=== PATIENT | female | born 1955 | race Caucasian/White ===

== ENCOUNTER 2021-07-04 10:01 | Emergency (ER) | payer BC ==
--- NOTE | 2021-07-04 10:13 | ERPHSYRPT ---
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 As quickly and suddenly as its onset, the symptoms relieved completely. Patient had no other complaints or issues. She denies headache, she denies chest pain. She denies abdominal pain she has no shortness of breath. She has not had a fever. Patient states there are no new medications. Her EKG on arrival shows a rate controlled atrial fibrillation and this is new to her. Patient has a history of peripheral neuropathy, elevate d cholesterol and sleep apnea. She has not seen a weasand trimmer. Timing/Duration: today Severity: mild Character of Deficits: new weakness, altered sensation, LUE Deficits: no difficulties Baseline/Normal Cognition: alert oriented x 3 Current Cognition: alert oriented x 3 Baseline Gait: walks w/o assistance Associated Symptoms: weakness (Upper extremityresolved), other Allergies/Adverse Reactions: codeine Adverse Reaction (Verified 07/04/21 10:13) Nausea and Vomiting morphine Adverse Reaction (Verified 07/04/21 10:13) Nausea and Vomiting Home Medications: Simvastatin [Zocor] 10 mg PO DAILY 11/03/15 [History] Ropinirole HCl 1 mg PO TID 11/08/15 [History] Travel Risk - International Travel Have you traveled outside of the country in past 3 weeks: No - Coronavirus Screening Are you exhibiting any of the following symptoms?: No Close contact with a COVID-19 positive Pt in past 14-21 Days: No - Review of Systems Constitutional: No Symptoms Eyes: No Symptoms Ears, Nose, & Throat: No Symptoms Respiratory: No Symptoms Cardiac: No Symptoms Abdominal/Gastrointestinal: No Symptoms Genitourinary Symptoms: No Symptoms Musculoskeletal: No Symptoms Skin: No Symptoms Neurological: Focal Weakness (Left upper extremitynow resolved), Parasthesia (Left upper extremitynow resolved) Psychological: No Symptoms Endocrine: No Symptoms Hematologic/Lymphatic: No Symptoms Immunological/Allergic: No Symptoms All Other Systems: Reviewed and Negative - Past Medical History Pertinent Past Medical History: Yes Neurological History: Peripheral Neuropathy, Other ENT History: No Pertinent History Cardiac History: High Cholesterol Respiratory History: Sleep Apnea Endocrine Medical History: No Pertinent History Musculoskeletal History: No Pertinent History GI Medical History: No Pertinent History History: No Pertinent History Psycho-Social History: No Pertinent History Female Reproductive Disorders: No Pertinent History Other Medical History: restless leg syndrome - Past Surgical History Past Surgical History: Yes Neuro Surgical History: No Pertinent History Cardiac: No Pertinent History Respiratory: No Pertinent History Gastrointestinal: No Pertinent History Genitourinary: No Pertinent History Musculoskeletal: Orthopedic Surgery Female Surgical History: Other Other Surgical History: D&C, right carpal tunnel release,colonoscopy with polypectomy april 2009 - Social History Smoking Status: Never smoker Exposure to second hand smoke: No Drug Use: none - Nursing Vital Signs Nursing Vital Signs: Initial Vital Signs Temperature 98.4 F 07/04/21 10:13 Pulse Rate 98 H 07/04/21 10:13 Respiratory Rate 20 07/04/21 10:13 Blood Pressure 146/89 07/04/21 10:13 O2 Sat by Pulse Oximetry 96 07/04/21 10:13 Pain Scale Pain Intensity 0 - [place] Coma Scale Best Eye Response (Kathy): (4) open spontaneously Best Verbal Response ([place]): (5) oriented Best Motor Response (Kathy): (6) obeys commands Kathy Total: 15 - Physical Exam General Appearance: no apparent distress, alert, anxiety, obese Eye Exam: bilateral eye: normal inspection, PERRL, EOMI Ears, Nose, Throat Exam: normal ENT inspection, moist mucous membranes Neck Exam: normal inspection, non-tender, supple, full range of motion Respiratory: normal breath sounds, lungs clear, airway intact, No chest tenderness, No respiratory distress Cardiovascular: irregular Gastrointestinal: soft, normal bowel sounds, No tenderness Pelvic Exam: not done Rectal Exam: not done Extremity Exam: normal inspection, normal range of motion, pelvis stable Mental Status: alert, oriented x 3, 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 When compared to EKG dated 02/14/2017, there is new onset of rate controlled atrial fibrillation today.) Ordered Tests: Active Orders 24 hr Category Date Time Status EKG-ER Only STAT Care 07/04/21 10:34 Active IV Insertion STAT Care 07/04/21 10:34 Active NPO (ED) STAT Care 07/04/21 10:35 Active HEAD WITHOUT CONTRAST [CT] Stat Exams 07/04/21 10:46 Completed CBC W DIFF Stat Lab 07/04/21 10:42 Completed CMP Stat Lab 07/04/21 09:05 Completed PROTIME WITH INR Stat Lab 07/04/21 10:42 Completed T4 (Thyroxine) Stat Lab 07/04/21 09:05 Completed TROPONIN Q3H Lab 07/04/21 10:42 Completed TROPONIN Q3H Lab 07/04/21 13:45 Ordered TROPONIN Q3H Lab 07/04/21 16:45 Ordered TROPONIN Q3H Lab 07/04/21 19:45 Ordered TROPONIN Q3H Lab 07/04/21 22:45 Ordered TSH [TSH, 3RD Generation] Stat Lab 07/04/21 09:05 Received Lab/Rad Data: Laboratory Result Diagrams 07/04/21 10:42 07/04/21 09:05 Laboratory Results 07/04/21 07/04/21 07/04/21 Range/Units 10:42 10:42 10:42 WBC 7.1 (4.0-10.5) x10^3/uL RBC 4.80 (4.1-5.4) x10^6/uL Hgb 14.0 (12.0-16.0) g/dL Hct 42.8 (35-47) % MCV 89.2 (78-100) fL MCH 29.2 (26-32) pg MCHC 32.7 (32-36) g/dL RDW 13.4 (11.5-14.0) % Plt Count 265 (150-450) x10^3/uL MPV 9.0 (7.5-11.0) fL Gran % 70.6 H (36.0-66.0) % Immature Gran % (Auto) 0.3 (0.00-0.4) % Nucleat RBC Rel Count 0.0 (0.00-0.1) % Eos # (Auto) 0.19 (0-0.5) x10^3/uL Immature Gran # (Auto) 0.02 (0.00-0.03) x10^3u/L Absolute Lymphs (auto) 1.45 (1.0-4.6) x10^3/uL Absolute Monos (auto) 0.38 (0.0-1.3) x10^3/uL Absolute Nucleated RBC 0.00 (0.00-0.01) x10^3u/L Lymphocytes % 20.3 L (24.0-44.0) % Monocytes % 5.3 (0.0-12.0) % Eosinophils % 2.7 (0.00-5.0) % Basophils % 0.8 (0.0-0.4) % Absolute Granulocytes 5.03 (1.4-6.9) x10^3/uL Basophils # 0.06 (0-0.4) x10^3/uL PT 10.7 (9.4-12.5) SECONDS INR 1.01 (0.8-3.0) Sodium (137-145) mmol/L Potassium (3.5-5.1) mmol/L Chloride (98-107) mmol/L Carbon Dioxide (22-30) mmol/L Anion Gap (5-15) MEQ/L BUN (7-17) mg/dL Creatinine (0.52-1.04) mg/dL Estimated GFR ML/MIN Glucose (74-106) mg/dL Calcium (8.4-10.2) mg/dL Total Bilirubin (0.2-1.3) mg/dL AST (14-36) U/L ALT (0-35) U/L Alkaline Phosphatase (38-126) U/L Troponin I 0.013 (0.000-0.034) ng/mL Serum Total Protein (6.3-8.2) g/dL Albumin (3.5-5.0) g/dL Thyroxine (T4) (5.53-10.96) ug/dL 07/04/21 07/04/21 Range/Units 09:05 09:05 WBC (4.0-10.5) x10^3/uL RBC (4.1-5.4) x10^6/uL Hgb (12.0-16.0) g/dL Hct (35-47) % MCV (78-100) fL MCH (26-32) pg MCHC (32-36) g/dL RDW (11.5-14.0) % Plt Count (150-450) x10^3/uL MPV (7.5-11.0) fL Gran % (36.0-66.0) % Immature Gran % (Auto) (0.00-0.4) % Nucleat RBC Rel Count (0.00-0.1) % Eos # (Auto) (0-0.5) x10^3/uL Immature Gran # (Auto) (0.00-0.03) x10^3u/L Absolute Lymphs (auto) (1.0-4.6) x10^3/uL Absolute Monos (auto) (0.0-1.3) x10^3/uL Absolute Nucleated RBC (0.00-0.01) x10^3u/L Lymphocytes % (24.0-44.0) % Monocytes % (0.0-12.0) % Eosinophils % (0.00-5.0) % Basophils % (0.0-0.4) % Absolute Granulocytes (1.4-6.9) x10^3/uL Basophils # (0-0.4) x10^3/uL PT (9.4-12.5) SECONDS INR (0.8-3.0) Sodium 138 (137-145) mmol/L Potassium 4.2 (3.5-5.1) mmol/L Chloride 107 (98-107) mmol/L Carbon Dioxide 21 L (22-30) mmol/L Anion Gap 14.2 (5-15) MEQ/L BUN 12 (7-17) mg/dL Creatinine 0.63 (0.52-1.04) mg/dL Estimated GFR > 60.0 ML/MIN Glucose 126 H (74-106) mg/dL Calcium 9.3 (8.4-10.2) mg/dL Total Bilirubin 0.50 (0.2-1.3) mg/dL AST 27 (14-36) U/L ALT 15 (0-35) U/L Alkaline Phosphatase 70 (38-126) U/L Troponin I (0.000-0.034) ng/mL Serum Total Protein 7.0 (6.3-8.2) g/dL Albumin 4.0 (3.5-5.0) g/dL Thyroxine (T4) 10.9 (5.53-10.96) ug/dL - Progress Progress: improved Progress Note: 07/04/21 11:42 ct head without: atrophy and degenerative microischemic changes wnl for age, no acute abnormalities, new finding of a small, 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 continue your medication as prescribed.
[2021-07-04 10:42] LABS: Absolute Neutrophil Ct (ANC) 5.03 x10^3/uL (1.4-6.9); Basophil (Absolute #) 0.06 x10^3/uL (0-0.4); Eosinophil % 2.7 % (0.00-5.0); Eosinophil (Absolute #) 0.19 x10^3/uL (0-0.5); Hematocrit 42.8 % (35-47); Lymphocyte (Absolute #) 1.45 x10^3/uL (1.0-4.6); Lymphocytes % 20.3 % (24.0-44.0); Mean Cell Volume 89.2 fL (78-100); Mean Corpuscular Hemoglobin 29.2 pg (26-32); Mean Corpuscular Hgb Concent. 32.7 g/dL (32-36); Monocyte (Absolute #) 0.38 x10^3/uL (0.0-1.3); Monocytes % 5.3 % (0.0-12.0); Neutrophil % 70.6 % (36.0-66.0); Platelet Count 265 x10^3/uL (150-450); Red Cell Distribution Width 13.4 % (11.5-14.0); White Blood Count 7.1 x10^3/uL (4.0-10.5)
--- NOTE | 2021-07-04 10:58 | XRAY ---
Indication: Sudden weakness and left upper extremity numbness. Multiple contiguous axial images obtained through the head without contrast. Comparison: January 20, 2009 Age-appropriate global atrophy and new mild periventricular degenerative micro-ischemia. Right mid periventricular white matter demonstrates new 1.2 x 0.5 cm focus of old infarct. No acute intracranial hemorrhage, abnormal extra-axial fluid collection, or mass effect. Fourth ventricle is midline without hydrocephalus. Bony calvarium intact. New partially visualized 1.4 cm right maxillary sinus polyp/retention cyst. Remaining visualized paranasal sinuses are clear. Again partial opacification of both mastoid air cells presumed inflammatory. Impression: 1. Atrophy and degenerative micro-ischemia within normal limits for patient's age. 2. 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 3. No acute intracranial abnormalities. 4. New finding small right maxillary sinus polyp/retention cyst. 5. Again partial opacification both mastoid air cells presumed inflammatory.
[2021-07-04 11:21] LABS: INR 1.01 (0.8-3.0); PROTIME 10.7 SECONDS (9.4-12.5)
[2021-07-04 11:35] VITALS: O2SAT 97
[2021-07-04 12:39] LABS: ALKALINE PHOSPHATASE 70 U/L (38-126); ANION GAP 14.2 MEQ/L (5-15); BLOOD UREA NITROGEN 12 mg/dL (7-17); CHLORIDE 107 mmol/L (98-107); Calcium 9.3 mg/dL (8.4-10.2); Carbon Dioxide 21 mmol/L (22-30); Creatinine 1 0.63 mg/dL (0.52-1.04); EST GLOMERULAR FILTRATION RATE > 60.0 ML/MIN; Glucose 126 mg/dL (74-106); Potassium 4.2 mmol/L (3.5-5.1); SGOT/AST 27 U/L (14-36); SGPT/ALT 15 U/L (0-35); SODIUM 138 mmol/L (137-145)
[2021-07-04 13:16] VITALS: BP 146/110; PULSE 76
== END 2021-07-04 13:32 | disposition home or self-care (01) ==
LOC: ED 10:01
DX: G45.9 Transient cerebral ischemic attack, unspecified (principal); I48.91 Unspecified atrial fibrillation; R53.1 Weakness; R20.0 Anesthesia of skin; E78.5 Hyperlipidemia, unspecified; G62.9 Polyneuropathy, unspecified; Z79.899 Other long term (current) drug therapy
CPT/HCPCS: 36000; 36415; 70450; 80053; 84436; 84443; 84484; 85025; 85610; 93005; 99284